=== PATIENT | female | born 1955 | race Hispanic/Latino ===

== ENCOUNTER 2025-01-08 01:31 | Inpatient (IN) | payer MEDICARE ==
[2025-01-08 02:43] LABS: Glucose, Urine (Dipstick) Normal (Negative); Leukocyte Negative (Negative); Protein, Urine (Dipstick) Negative (Neg-Trace); Specific Gravity, Urine 1.005 (1.005-1.030)
[2025-01-08 02:55] LABS: #Basophils 0.03 10x3/uL (0.0-0.2); #Eosinophils 0.04 10x3/uL (0.0-0.5); #Monocytes 0.52 10x3/uL (0.0-1.1); #Neutrophils 4.92 10x3/uL (1.5-8.4); %Basophils 0.4 % (0.0-2.0); %Eosinophils 0.5 % (0.0-6.0); %Lymphocytes 24.9 % (18.0-47.0); %Monocytes 7.1 % (0.0-10.0); %Neutrophils 66.8 % (40.0-75.0); Hematocrit 39.3 % (34.9-44.5); Hemoglobin 13.0 g/dL (12.0-15.5); Mean Corpuscular Hemoglobin 27.7 pg (27.0-33.0); Mean Corpuscular Volume 83.8 fL (81.6-98.3); Platelet Count 323 10x3/uL (150-450); Red Blood Cell (RBC) Count 4.69 10x6/uL (3.90-5.03); White Blood Cell (WBC) Count 7.36 10x3/uL (3.5-10.5)
[2025-01-08 03:17] LABS: Bacteria/HPF None Seen HPF (None Seen); CAUTI Indications for Culture Alt mental st,lethar; RBC/HPF None Seen HPF (0-3); WBC/HPF 0-3 HPF (0-3)
[2025-01-08 03:18] LABS: Urine Culture Reflex No No
[2025-01-08 03:18] LABS: ALT (SGPT) 12 U/L (Less than 34); AST (SGOT) 15 U/L (11-34); Albumin 4.3 g/dL (3.1-4.5); Alkaline Phosphatase 75 U/L (40-110); Anion Gap 16 mmol/L (10-20); BUN (Urea Nitrogen) 18 mg/dL (9.8-20.1); Bilirubin, Total 1.0 mg/dL (0.3-1.2); Calc. Creatinine Clearance 0 mL/min (70-130); Calcium 9.8 mg/dL (7.8-10.44); Carbon Dioxide 24 mmol/L (23-31); Chloride 99 mmol/L (98-107); Globulin 3.4 g/dL (2.4-3.5); Glucose 158 mg/dL (80-115); Lipase 52 U/L (8-78); Potassium 4.1 mmol/L (3.5-5.1); Sodium 135 mmol/L (136-145)
[2025-01-08 03:24] LABS: Troponin I 0.071 ng/mL (< 0.028)
[2025-01-08] MEDS ORDERED: Aspirin Chewable 81 MG TAB ONE (03:40)
[2025-01-08] MEDS ORDERED: Enoxaparin 60 MG (0.6 mL) SYRINGE ONE (04:39)
[2025-01-08] MEDS ORDERED: Nitroglycerin 0.4 MG TAB (25 Tab Bottle) SL PRN (06:04)
[2025-01-08] MEDS ORDERED: Calcium Carbonate 500 MG ChewTAB PO PRN (06:09)
[2025-01-08] MEDS ORDERED: Acetaminophen 325 MG TAB PO PRN (06:09)
[2025-01-08] MEDS ORDERED: Ondansetron PF 4 MG/2 ML Vial IVP PRN (06:09)
[2025-01-08] MEDS ORDERED: Senokot S 8.6-50 MG TAB PO PRN (06:09)
[2025-01-08] MEDS ORDERED: Melatonin 3 MG TAB PO PRN (06:09)
[2025-01-08] MEDS ORDERED: Guaifenesin DM 100-10/5 ML UDCUP PO PRN (06:09)
[2025-01-08] MEDS ORDERED: Electrolyte Replacement Protocol 1 EACH FS PRN (06:15)
[2025-01-08 07:03] LABS: Cardiac Risk 2.4 (Less than 4.5); Cholesterol 145.0 mg/dl (< 200 Desired); HDL Cholesterol 61.0 mg/dL (>60 Neg Risk); LDL Cholesterol, Calculated 77.0 mg/dL; Triglycerides 34.0 mg/dL (Less than 150)
[2025-01-08 07:09] LABS: Troponin I 0.073 ng/mL (< 0.028)
[2025-01-08] MEDS ORDERED: Acetaminophen/Codeine 30-300mg Tablet ONE (07:47)
[2025-01-08] MEDS: Acetaminophen/Codeine 30-300mg Tablet PO PRN (07:50)
[2025-01-08] MEDS ORDERED: Pantoprazole 40 MG DR.TAB ONE (08:02)
[2025-01-08] MEDS ORDERED: Aspirin 325 MG TAB ONE (08:02)
[2025-01-08] MEDS ORDERED: cefTRIAXone (ROCEPHIN) 1 GM VIAL ONE (08:02)
[2025-01-08] MEDS: cefTRIAXone\\ROCEPHIN 1 GM in Sodium Chloride 0.9% 100 ML IVPB SCH (08:06)
[2025-01-08] MEDS: Pantoprazole 40 MG DR.TAB PO SCH (08:07)
[2025-01-08] MEDS: Carvedilol 12.5 MG TAB PO SCH (08:07)
[2025-01-08 10:10] LABS: Cardiac Risk 2.4 (Less than 4.5); Cholesterol 160.0 mg/dl (< 200 Desired); HDL Cholesterol 66.0 mg/dL (>60 Neg Risk); LDL Cholesterol, Calculated 82.0 mg/dL; Triglycerides 62.0 mg/dL (Less than 150)
[2025-01-08 10:14] LABS: Troponin I 0.058 ng/mL (< 0.028)
[2025-01-08 11:07] VITALS: BMI 21.9
[2025-01-08 12:42] VITALS: BP 144/80; TEMP 97.3
[2025-01-08] MEDS: Sucralfate 1 GM TAB PO SCH (15:16)
[2025-01-08] MEDS: PNEUMOC 20-VAL CONJ-DIP CRM/PF 0.5 ML SYRINGE IM ONE (15:33)
[2025-01-08] MEDS ORDERED: Enoxaparin 60 MG (0.6 mL) SYRINGE SC SCH (16:00)
[2025-01-08] MEDS ORDERED: QUEtiapine 100 MG TAB PO SCH (21:00)
== END 2025-01-08 17:41 | disposition home or self-care (01) | DRG 313 ==
LOC: CSHERS 01:31 → CSHERHOLD 04:38 → CSHTELE 09:20
PROVIDERS: ADMIT Internal Medicine; ATTEND Physician Assistant
DX: R07.2 Precordial pain (principal); I5A Non-ischemic myocardial injury (non-traumatic); K21.9 Gastro-esophageal reflux disease without esophagitis; F41.9 Anxiety disorder, unspecified; F39 Unspecified mood [affective] disorder; Z98.890 Other specified postprocedural states; R30.0 Dysuria; R33.9 Retention of urine, unspecified; G47.00 Insomnia, unspecified; Z79.899 Other long term (current) drug therapy; Z88.0 Allergy status to penicillin; K58.9 Irritable bowel syndrome, unspecified
CPT/HCPCS: 36415; 70450; 71045; 80053; 80061; 81001; 83036; 83690; 84443; 84484; 85025; 93005; 93010; 93306; 96372; J0696; J1650